=== PATIENT | male | born 1955 | race Caucasian/White ===

== ENCOUNTER → 2019-10-28 | Outpatient (CLI) | payer OTHER | END | disposition home or self-care (01) | LOC: LAB 15:31 | PROVIDERS: ATTEND Internal Medicine Pulmonary Disease | DX: U07.1 COVID-19 (principal) | CPT/HCPCS: U0003-CS ==

== ENCOUNTER → 2020-04-01 | Outpatient (CLI) | payer OTHER ==
--- NOTE | 2020-04-01 16:22 | KCIC ---
EXAMINATION: MRI RIGHT SHOULDER WITHOUT IV CONTRAST CLINICAL HISTORY: Right shoulder pain concerning for rotator cuff tear. Superior shoulder pain and we akness x 2 months. Injured pruning. TECHNIQUE: Multiplanar multisequential images obtained through the shoulder without intravenous contr ast. COMPARISON: None FINDINGS: TENDONS: - Supraspinatus: Small low-grade partial thickness articular sided tear suggested in the posterior th ird of the tendon with moderate to marked tendinosis. - Infraspinatus: Moderate to marked tendinosis without definite tear. - Subscapularis: Mild tendinosis without tear. - Teres Minor: Intact. - Biceps Tendon: The long head biceps tendon is intact and appropriately located. MUSCLES: Muscle bulk and signal intensity are within normal limits. LABRUM: Circumferential degeneration and degenerative tearing in with small paralabral cysts superior ly and posteriorly. GLENOHUMERAL JOINT: - Joint Fluid: No joint effusion or synovitis. - Cartilage: No full-thickness chondral defect visualized. ACROMIOCLAVICULAR JOINT: Mild hypertrophic degenerative changes. BONES/MARROW: No evidence of acute fracture or suspicious marrow replacing process. Chronic reactive changes in the posterior greater tuberosity. OTHER: Mild thickening of the subacromial/subdeltoid bursa. IMPRESSION: Moderate rotator cuff tendinosis with small low-grade partial thickness supraspinatus tendon tear sug gested. Labral degeneration and degenerative tearing with paralabral cysts. Electronically signed by: Trevin Jarrett DO (04/01/2020 4:20 PM) [id number]
== END ==
LOC: KCIC MRI 13:48
PROVIDERS: ATTEND Orthopaedic Surgery
DX: M75.111 Incomplete rotator cuff tear or rupture of right shoulder, not specified as traumatic (principal)
CPT/HCPCS: 73221